=== PATIENT | male | born 1960 | race Caucasian/White ===

== ENCOUNTER 2021-12-09 10:00 | Observation (INO) | payer BC ==
[~2021-12-09] VITALS: Ht 175.3 cm; Wt 115.8 kg
[2021-12-09 10:39] LABS: BASOPHILS % (AUTO) 0.8 % (0.0-5.0); EOSINOPHILS % (AUTO) 4.6 % (0.0-8.0); HEMATOCRIT 39.5 % (42-54); LYMPHOCYTES % (AUTO) 22.4 % (21.0-51.0); MEAN CORPUSCULAR HEMOGLOBIN 29.3 pg (27.0-33.0); MEAN CORPUSCULAR HGB CONC 32.9 g/dL (32.0-36.0); MEAN CORPUSCULAR VOLUME 89.2 fL (79-99); NEUTROPHILS % (AUTO) 63.6 % (40.0-77.0); PLATELET COUNT (AUTO) 308 K/uL (130-400); RED BLOOD CELL COUNT(AUTO) 4.43 MIL/uL (4.50-6.20); RED CELL DISTRIBUTION WIDTH 12.7 % (11.0-15.5); WHITE BLOOD COUNT (AUTO) 9.3 K/uL (4.8-10.8)
[2021-12-09 10:46] LABS: POTASSIUM 4.1 mmol/L (3.5-5.1)
[2021-12-09 10:52] LABS: APPEARANCE,URINE CLEAR (CLEAR); BILIRUBIN,URINE NEGATIVE (NEGATIVE); COLOR,URINE YELLOW (YELLOW); GLUCOSE, URINE (UA) NEGATIVE (NEGATIVE); KETONES,URINE NEGATIVE (NEGATIVE); LEUKOCYTE ESTERASE ,URINE NEGATIVE (NEGATIVE); NITRATE,URINE NEGATIVE (NEGATIVE); OCCULT BLOOD,URINE NEGATIVE (NEGATIVE); PH,URINE 6.5 (5.0-8.0); PROTEIN,URINE NEGATIVE (NEGATIVE); UROBILINOGEN,URINE 0.2 mg/dL (0.2-1.0)
[2021-12-09 11:55] VITALS: BP 193/91
[2021-12-10] MEDS ORDERED: HYDR-4060 PO (12:19)
[2021-12-10] MEDS ORDERED: HYDR12.54 PO (12:19)
[2021-12-10] MEDS ORDERED: BACL10TA PO (12:19)
[2021-12-10] MEDS ORDERED: LOSA100T58 PO (12:19)
[2021-12-11] VITALS (25 sets, daily range): BP systolic 103–179; BP diastolic 53–78
[2021-12-11] MEDS ORDERED: LACTATED RINGERS 1000ML 1,000 ML IV ONE (08:08)
[2021-12-11] MEDS ORDERED: CLINDAMYCIN IVPB 900MG/50ML 50 ML IV ONE (08:08)
[2021-12-11] MEDS ORDERED: ASPI-1197 PO (08:47)
[2021-12-11] MEDS ORDERED: AMLO-258 PO (08:47)
[2021-12-11] MEDS ORDERED: NAPR-1023 PO (08:47)
[2021-12-11] MEDS ORDERED: MULT-1203 PO (08:47)
[2021-12-11] MEDS ORDERED: LIDOCAINE PF 100MG/5ML (2%) SYRINGE 5ML ONE (09:13)
[2021-12-11] MEDS ORDERED: SUCCINYLCHOLINE CHLORIDE 20 MG/ML 10 ML VIAL ONE (09:13)
[2021-12-11] MEDS ORDERED: FENTANYL CITRATE PF 50 MCG/1 ML 2ML VIAL ONE (09:14)
[2021-12-11] MEDS ORDERED: MIDAZOLAM HCL 1 MG/ML 2ML VIAL ONE (09:14)
[2021-12-11] MEDS ORDERED: PROPOFOL 10 MG/ML 20ML VIAL IV ONE (09:14)
[2021-12-11] MEDS ORDERED: ROCURONIUM 10MG/1ML SYR 10 MG/ML ML ONE ×2 (09:14→10:57)
[2021-12-11] MEDS ORDERED: ROPIVACAINE 0.5% 5MG/ML 30ML IJ ONE (09:20)
[2021-12-11] MEDS ORDERED: VANCOMYCIN 1G VIAL ONE (10:02)
[2021-12-11] MEDS ORDERED: MEPERIDINE-PF 25 MG/ML SYG ONE ×4 (12:12→14:54)
[2021-12-11] MEDS ORDERED: TEMAZEPAM 15 MG CAPSULE PO PRN (13:30)
[2021-12-11] MEDS ORDERED: ONDANSETRON 4MG INJ IVP PRN (13:30)
[2021-12-11] MEDS ORDERED: KCL 20 MEQ ERTAB PO PRN (13:30)
[2021-12-11] MEDS ORDERED: TRAMADOL HCL 50 MG TABLET PO PRN (13:30)
[2021-12-11] MEDS ORDERED: LIDOCAINE HCL-MPF 1% 2ML VIAL IV PRN (13:30)
[2021-12-11] MEDS ORDERED: CALCIUM CARB 500MG PO PRN (13:30)
[2021-12-11] MEDS ORDERED: VANCOMYCIN PROTOCOL PER PHARMACY IV SCH (13:30)
[2021-12-11] MEDS ORDERED: DiphenhydrAMINE HCL 50 MG/ML VIAL IVP PRN (13:30)
[2021-12-11] MEDS ORDERED: OXYCODONE HCL 5 MG TAB PO PRN (13:30)
[2021-12-11] MEDS ORDERED: POTASSIUM CHLORIDE 10% ELIXIR 20 MEQ/15 ML UDCUP PO PRN (13:30)
[2021-12-11] MEDS ORDERED: POTASSIUM CHLORIDE 20MEQ/100ML 100 ML IV PRN (13:30)
[2021-12-11] MEDS ORDERED: KETOROLAC 15MG/ML VIAL (15MG/ML) IV PRN (13:30)
[2021-12-11] MEDS: 0.9%NACL 1000ML 1,000 ML IV SCH ×2 (13:30→21:15)
[2021-12-11] MEDS ORDERED: FERROUS FUMARATE 324 MG TABLET PO PRN (13:30)
[2021-12-11] MEDS ORDERED: TRANEXAMIC ACID 1000MG/10ML ONE (14:22)
[2021-12-11] MEDS ORDERED: COMPOUND IV REFRIGERATED 1 EACH IVSOLN MISC PRN (15:00)
[2021-12-11] MEDS ORDERED: KETOROLAC 30MG VIAL (30MG/ML) ONE (15:26)
[2021-12-11] MEDS: ACETAMINOPHEN 500 MG TABLET PO SCH ×2 (16:59→18:05)
[2021-12-11] MEDS: CLINDAMYCIN IVPB 900MG/50ML 50 ML IV SCH (18:03)
[2021-12-11] MEDS: OXYCODONE HCL 5 MG TAB PO PRN (18:05)
[2021-12-11] MEDS: LOSARTAN 100 MG TABLET PO SCH (18:56)
[2021-12-11] MEDS: AMLODIPINE 5 MG TAB PO SCH (18:58)
[2021-12-11] MEDS: BACLOFEN 10 MG TABLET PO SCH (19:01)
[2021-12-11] MEDS: VANCOMYCIN 1.5GM/NS 250ML IV SCH ×2 (19:15)
[2021-12-11] MEDS ORDERED: NALOXONE HCL 0.4 MG/1 ML ML IVP PRN (19:30)
[2021-12-11] MEDS: FAMOTIDINE 20MG TAB PO SCH (20:07)
[2021-12-11] MEDS: PREGABALIN 25 MG CAP PO SCH (20:07)
[2021-12-11] MEDS: CELECOXIB 200 MG CAP PO SCH (20:07)
[2021-12-11] MEDS: HYDROMORPHONE PCA 10 MG/50 ML 50 ML IV PRN (21:15)
[2021-12-12] MEDS: CLINDAMYCIN IVPB 900MG/50ML 50 ML IV SCH (01:52)
[2021-12-12] MEDS: VANCOMYCIN 1.5GM/NS 250ML IV SCH ×2 (04:12)
[2021-12-12 04:54] VITALS: BP 127/50
[2021-12-12 05:39] LABS: HEMATOCRIT 28.6 % (42-54); MEAN CORPUSCULAR HEMOGLOBIN 30.2 pg (27.0-33.0); MEAN CORPUSCULAR HGB CONC 32.5 g/dL (32.0-36.0); MEAN CORPUSCULAR VOLUME 92.9 fL (79-99); RED BLOOD CELL COUNT(AUTO) 3.08 MIL/uL (4.50-6.20); RED CELL DISTRIBUTION WIDTH 12.9 % (11.0-15.5); WHITE BLOOD COUNT (AUTO) 10.3 K/uL (4.8-10.8)
[2021-12-12 06:00] LABS: POTASSIUM 3.5 mmol/L (3.5-5.1)
[2021-12-12] MEDS: ACETAMINOPHEN 500 MG TABLET PO SCH ×3 (06:18→19:43)
[2021-12-12 08:00] VITALS: BP 157/77
[2021-12-12] MEDS: OXYCODONE HCL 5 MG TAB PO PRN ×3 (08:29→19:43)
[2021-12-12] MEDS: LOSARTAN 100 MG TABLET PO SCH (08:36)
[2021-12-12] MEDS: AMLODIPINE 5 MG TAB PO SCH (08:36)
[2021-12-12] MEDS: CELECOXIB 200 MG CAP PO SCH ×2 (08:36→19:40)
[2021-12-12] MEDS: BACLOFEN 10 MG TABLET PO SCH (08:36)
[2021-12-12] MEDS: PREGABALIN 25 MG CAP PO SCH ×2 (08:36→19:40)
[2021-12-12] MEDS: TAMSULOSIN HCL 0.4 MG CAP.ER.24H PO SCH (08:36)
[2021-12-12] MEDS: APIXABAN 2.5 MG TABLET PO SCH ×2 (08:37→19:41)
[2021-12-12] MEDS: POLYETHYLENE GLYCOL 3350 17 GM POWD.PACK PO SCH (08:37)
[2021-12-12] MEDS: FAMOTIDINE 20MG TAB PO SCH ×2 (08:37→19:40)
[2021-12-12] MEDS: HYDROCHLOROTHIAZIDE 25 MG TABLET PO SCH (08:37)
[2021-12-12] MEDS: 0.9%NACL 1000ML 1,000 ML IV SCH (09:30)
[2021-12-12 12:00] VITALS: BP 150/59
[2021-12-12 16:00] VITALS: BP 106/66
[2021-12-12 19:48] VITALS: BP 133/56
[2021-12-12 23:20] VITALS: BP 148/70
[2021-12-13] MEDS: OXYCODONE HCL 5 MG TAB PO PRN (03:42)
[2021-12-13 03:43] VITALS: BP 140/62
[2021-12-13] MEDS: ACETAMINOPHEN 500 MG TABLET PO SCH ×2 (04:48→13:23)
[2021-12-13] MEDS: HYDROMORPHONE PCA 10 MG/50 ML 50 ML IV PRN (05:56)
[2021-12-13 08:00] VITALS: BP 96/48
[2021-12-13] MEDS: TAMSULOSIN HCL 0.4 MG CAP.ER.24H PO SCH (08:43)
[2021-12-13] MEDS: AMLODIPINE 5 MG TAB PO SCH (08:43)
[2021-12-13] MEDS: POLYETHYLENE GLYCOL 3350 17 GM POWD.PACK PO SCH (08:43)
[2021-12-13] MEDS: PREGABALIN 25 MG CAP PO SCH (08:44)
[2021-12-13] MEDS: FAMOTIDINE 20MG TAB PO SCH (08:44)
[2021-12-13] MEDS: APIXABAN 2.5 MG TABLET PO SCH (08:44)
[2021-12-13] MEDS: CELECOXIB 200 MG CAP PO SCH (08:45)
[2021-12-13] MEDS: BACLOFEN 10 MG TABLET PO SCH (08:45)
[2021-12-13] MEDS: HYDROCHLOROTHIAZIDE 25 MG TABLET PO SCH (08:45)
[2021-12-13] MEDS: LOSARTAN 100 MG TABLET PO SCH (08:45)
[2021-12-13 11:41] VITALS: BP 142/77
[2021-12-13] MEDS ORDERED: HYDR-4060 PO (13:43)
[2021-12-13] MEDS ORDERED: AEC81 PO (13:43)
[2021-12-14] MEDS ORDERED: BISACODYL 10 MG SUPP.RECT RC PRN (13:30)
== END 2021-12-13 15:01 | disposition home or self-care (01) ==
LOC: EDSTATUS 10:00 → DAHIP 12-11 07:47 → OBSVTOIN 12-11 07:47 → INTOOBSV 12-11 07:47 → EDSTATUS 12-11 10:00 → 3BH 12-11 16:46
PROVIDERS: ADMIT Orthopaedic Surgery; ATTEND Orthopaedic Surgery
DX: M17.32 Unilateral post-traumatic osteoarthritis, left knee (principal); Z20.822 Contact with and (suspected) exposure to COVID-19; I10 Essential (primary) hypertension; R26.89 Other abnormalities of gait and mobility; E66.9 Obesity, unspecified; Z79.899 Other long term (current) drug therapy; Z88.0 Allergy status to penicillin
CPT/HCPCS: 27447; 36415 ×2; 64447; 76942; 80048 ×2; 81003; 85025; 85027; 87088; 87635; 87641; 96365; 96366 ×3; 96367; 96368; 96375; 97039 ×5; 97116 ×4; 97161; 97530 ×4; A4215; A4221; A4222; A4223; A4649 ×5; A4663; A4930; A9272; C1776; G0378 ×28; J0330; J1170 ×2; J1885; J2001; J2175 ×4; J2250; J2405; J2704; J2795; J3010; J3370 ×2; J3490 ×4; J7050; J7120 ×2

== ENCOUNTER 2024-03-13 01:14 | Observation (INO) | payer BC ==
[~2024-03-13] VITALS: Ht 180.3 cm; Wt 109.3 kg
[~2024-03-13 01:14] MED LIST: AEC81 PO; AMLO-258 PO; BACL10TA PO; HYDR-4060 PO; HYDR12.54 PO; LOSA100T59 PO; MULT-1203 PO
[2024-03-13] MEDS: 0.9%NACL 1000ML 1,000 ML IV ONE ×2 (01:48→06:18)
[2024-03-13 01:54] LABS: BASOPHILS # (AUTO) 0.05 K/uL (0.00-0.20); BASOPHILS % (AUTO) 0.3 % (0.0-5.0); HEMATOCRIT 38.7 % (42-54); IMMATURE GRANULOCYTE ABSOLUTE 0.24 K/uL (0-1); LYMPHOCYTES # (AUTO) 0.8 K/uL (1.0-4.8); LYMPHOCYTES % (AUTO) 5.7 % (21.0-51.0); MEAN CORPUSCULAR HEMOGLOBIN 30.4 pg (27.0-33.0); MEAN CORPUSCULAR HGB CONC 33.9 g/dL (32.0-36.0); MEAN CORPUSCULAR VOLUME 89.8 fL (79-99); MONOCYTES # (AUTO) 0.4 K/uL (0.1-1.0); MONOCYTES % (AUTO) 2.8 % (3.0-13.0); NEUTROPHILS % (AUTO) 89.5 % (40.0-77.0); PLATELET COUNT (AUTO) 323 K/uL (130-400); RED BLOOD CELL COUNT(AUTO) 4.31 MIL/uL (4.50-6.20); RED CELL DISTRIBUTION WIDTH 13.2 % (11.0-15.5); WHITE BLOOD COUNT (AUTO) 14.5 K/uL (4.8-10.8)
[2024-03-13 02:03] LABS: CARBON DIOXIDE 25 mmol/L (21-32); CHLORIDE 100 mmol/L (101-111); CREATININE 1.9 mg/dL (0.5-1.3); GLOMERULAR FILTR. RATE CALC 39 mL/min (>90); GLUCOSE,RANDOM 158 mg/dL (70-105); POTASSIUM 5.2 mmol/L (3.5-5.1); SODIUM SERUM 137 mmol/L (136-145); UREA NITROGEN, BLOOD 18 mg/dL (7-18)
[2024-03-13 02:05] LABS: INR <= 0.93 (0.85-1.15); PROTHROMBIN TIME 10.5 SEC (9.6-11.6)
[2024-03-13 02:06] LABS: PARTIAL THROMBOPLASTIN TIME 25.1 SEC (26.3-35.5)
[2024-03-13 02:08] LABS: AMMONIA < 10 umol/L (11-32); CREATINE KINASE, TOTAL 69 U/L (21-232)
[2024-03-13] MEDS: ONDANSETRON 4MG INJ IVP ONE (03:23)
[2024-03-13] MEDS: MORPHINE 2 MG SYG IVP ONE (03:24)
[2024-03-13 06:02] LABS: APPEARANCE,URINE CLEAR (CLEAR); BILIRUBIN,URINE NEGATIVE (NEGATIVE); COLOR,URINE YELLOW (YELLOW); GLUCOSE, URINE (UA) NEGATIVE (NEGATIVE); KETONES,URINE NEGATIVE (NEGATIVE); LEUKOCYTE ESTERASE ,URINE NEGATIVE Leu/uL (NEGATIVE); NITRATE,URINE NEGATIVE (NEGATIVE); OCCULT BLOOD,URINE NEGATIVE (NEGATIVE); PH,URINE 5.5 (5.0-8.0); PROTEIN,URINE NEGATIVE (NEGATIVE); UROBILINOGEN,URINE 0.2 mg/dL (0.2-1.0)
[2024-03-13 06:03] LABS: ADD UA MICROSCOPIC NO
[2024-03-13 06:11] LABS: AMPHET/METH SCREEN,URINE NEGATIVE (NEGATIVE); BARBITURATE SCREEN, URINE NEGATIVE (NEGATIVE); BENZODIAZEPINES SCREEN,URINE NEGATIVE (NEGATIVE); CANNABINOID SCREEN,URINE NEGATIVE (NEGATIVE); COCAINE SCREEN,URINE NEGATIVE (NEGATIVE); OPIATE SCREEN,URINE NEGATIVE (NEGATIVE); PHENCYCLIDINE SCREEN,URINE NEGATIVE (NEGATIVE)
[2024-03-13] MEDS: 0.9%NACL 1000ML 1,000 ML IV SCH (07:50)
[2024-03-13] MEDS ORDERED: DIPHENHYDRAMINE HCL 25 MG CAPSULE PO PRN (08:00)
[2024-03-13] MEDS ORDERED: KCL 20 MEQ ERTAB PO PRN (08:00)
[2024-03-13] MEDS ORDERED: GUAIFENESIN-DM 200/20 MG 10 ML PO PRN (08:00)
[2024-03-13] MEDS ORDERED: ACETAMINOPHEN 325 MG TAB PO PRN ×2 (08:00)
[2024-03-13] MEDS ORDERED: MAGNESIUM 2GM PREMIX 50ML 50 ML IV PRN (08:00)
[2024-03-13] MEDS ORDERED: LACTULOSE 20 GM/30 ML UDCUP PO PRN (08:00)
[2024-03-13] MEDS ORDERED: POTASSIUM CHLORIDE 10% ELIXIR 20 MEQ/15 ML UDCUP PO PRN (08:00)
[2024-03-13] MEDS ORDERED: MAG/ALUM/SIMETH 30 ML UDCUP PO PRN (08:00)
[2024-03-13] MEDS ORDERED: HYDROCODONE/ACETAMINOPHEN 5/325 MG TAB PO PRN ×2 (08:00)
[2024-03-13] MEDS ORDERED: DiphenhydrAMINE HCL 50 MG/ML VIAL IV PRN (08:00)
[2024-03-13] MEDS ORDERED: FAMOTIDINE 20MG VIAL IV PRN (08:00)
[2024-03-13] MEDS ORDERED: NITROGLYCERIN 0.4 MG SL TAB SL PRN (08:00)
[2024-03-13] MEDS ORDERED: POTASSIUM CHLORIDE 20MEQ/100ML 100 ML IV PRN (08:00)
[2024-03-13] MEDS ORDERED: ONDANSETRON 4MG INJ IV PRN (08:00)
[2024-03-13] MEDS: LACTATED RINGERS 1000ML 1,000 ML IV SCH (08:00)
[2024-03-13] MEDS: LACTATED RINGERS 1000ML 1,000 ML IV ONE (08:08)
[2024-03-13 08:30] VITALS: BP 166/80; PULSE 98; RESP 20
[2024-03-13] MEDS ORDERED: HYDROMORPHONE 0.5 MG SYG (0.5MG/0.5ML) IV PRN (08:30)
[2024-03-13 08:34] LABS: CREATININE 1.6 mg/dL (0.5-1.3)
[2024-03-13 09:00] VITALS: O2SAT 98
[2024-03-13] MEDS: FAMOTIDINE 20MG TAB PO SCH (09:56)
[2024-03-13] MEDS: HEPARIN 5,000 UNIT VIAL SQ SCH (10:03)
[2024-03-13 11:33] VITALS: BP 168/73; PULSE 105; RESP 20
[2024-03-13 15:22] VITALS: BP 170/91; PULSE 88; RESP 18
[2024-03-13 20:00] VITALS: BP 134/76; PULSE 93; RESP 22
[2024-03-13 20:03] VITALS: O2SAT 99
[2024-03-14] VITALS: BP 153/78; PULSE 94; RESP 20
[2024-03-14 04:00] VITALS: BP 148/79; PULSE 82; RESP 20
[2024-03-14 05:16] LABS: BASOPHILS # (AUTO) 0.06 K/uL (0.00-0.20); BASOPHILS % (AUTO) 0.6 % (0.0-5.0); EOSINOPHILS # (AUTO) 0.37 K/uL (0.00-0.70); EOSINOPHILS % (AUTO) 3.9 % (0.0-8.0); HEMATOCRIT 35.6 % (42-54); LYMPHOCYTES # (AUTO) 1.8 K/uL (1.0-4.8); MEAN CORPUSCULAR HEMOGLOBIN 30.5 pg (27.0-33.0); MEAN CORPUSCULAR HGB CONC 32.9 g/dL (32.0-36.0); MONOCYTES # (AUTO) 0.7 K/uL (0.1-1.0); MONOCYTES % (AUTO) 7.3 % (3.0-13.0); NEUTROPHILS # (AUTO) 6.5 K/uL (1.8-7.7); NEUTROPHILS % (AUTO) 68.2 % (40.0-77.0); PLATELET COUNT (AUTO) 281 K/uL (130-400); RED BLOOD CELL COUNT(AUTO) 3.83 MIL/uL (4.50-6.20); RED CELL DISTRIBUTION WIDTH 13.5 % (11.0-15.5); WHITE BLOOD COUNT (AUTO) 9.5 K/uL (4.8-10.8)
[2024-03-14 05:42] LABS: % IRON SATURATION 30.1 % (30-44)
[2024-03-14 05:43] LABS: ALBUMIN 3.2 g/dL (3.5-5.0); CREATININE 1.1 mg/dL (0.5-1.3); MAGNESIUM 1.8 mg/dL (1.80-2.40); PHOSPHORUS 3.3 mg/dL (2.5-4.9); POTASSIUM 3.9 mmol/L (3.5-5.1); THYROID STIMULATING HORMONE 2.19 uIU/mL (0.36-3.74); TOTAL PROTEIN, SERUM 5.9 g/dL (6.0-8.3)
[2024-03-14 06:10] LABS: HEMOGLOBIN A1C 5.7 % (4.0-6.0)
[2024-03-14 06:24] LABS: BILIRUBIN,TOTAL 0.3 mg/dL (0.2-1.0)
[2024-03-14 08:00] VITALS: BP 146/79; PULSE 81; RESP 16; O2SAT 100
[2024-03-14 12:00] VITALS: BP 158/73; PULSE 87; RESP 16
== END 2024-03-14 13:45 | disposition home or self-care (01) ==
LOC: EDH 01:14 → EDHIP 07:34 → 4BH 08:30 → 4CH 08:31
PROVIDERS: ADMIT Internal Medicine; ATTEND Internal Medicine
DX: G93.41 Metabolic encephalopathy (principal); E86.0 Dehydration; T67.5XXA Heat exhaustion, unspecified, initial encounter; N17.9 Acute kidney failure, unspecified; I10 Essential (primary) hypertension; G51.0 Bell's palsy; E87.20 Acidosis, unspecified; D72.829 Elevated white blood cell count, unspecified; Z96.659 Presence of unspecified artificial knee joint; Z79.899 Other long term (current) drug therapy; Z98.890 Other specified postprocedural states; Z88.0 Allergy status to penicillin; X30.XXXA Exposure to excessive natural heat, initial encounter; Y93.89 Activity, other specified; Y92.89 Other specified places as the place of occurrence of the external cause; Y99.8 Other external cause status
CPT/HCPCS: 96374; 96372 ×2; 96361 ×5; 96375; 99285; 82550; 84484; 80048 ×2; 80305; 82140; 85025; 85610; 85730; 83605 ×3; 81003; 36415 ×2; 71045; 70450; 93005; 84145; 80050; 83036; 83540; 83550; 83735; 84100; G0378 ×30; J7120; J2270; J7030; J2405; J1644 ×3; 80053; 84443

== ENCOUNTER 2024-06-12 08:49 | Emergency (ER) | payer BC ==
[~2024-06-12] VITALS: Ht 175.3 cm; Wt 136.1 kg
[~2024-06-12 08:49] MED LIST changes: -HYDR12.54 PO
[2024-06-12] MEDS: 0.9%NACL 1000ML 1,000 ML IV ONE ×2 (09:05→11:23)
[2024-06-12 09:38] LABS: BASOPHILS # (AUTO) 0.02 K/uL (0.00-0.20); BASOPHILS % (AUTO) 0.2 % (0.0-5.0); EOSINOPHILS # (AUTO) 0.02 K/uL (0.00-0.70); EOSINOPHILS % (AUTO) 0.2 % (0.0-8.0); HEMATOCRIT 36.8 % (42-54); IMMATURE GRANULOCYTE ABSOLUTE 0.07 K/uL (0-1); LYMPHOCYTES # (AUTO) 1.3 K/uL (1.0-4.8); LYMPHOCYTES % (AUTO) 10.4 % (21.0-51.0); MEAN CORPUSCULAR HGB CONC 33.2 g/dL (32.0-36.0); MEAN CORPUSCULAR VOLUME 90.6 fL (79-99); MONOCYTES # (AUTO) 0.9 K/uL (0.1-1.0); MONOCYTES % (AUTO) 6.9 % (3.0-13.0); NEUTROPHILS # (AUTO) 10.4 K/uL (1.8-7.7); NEUTROPHILS % (AUTO) 81.8 % (40.0-77.0); PLATELET COUNT (AUTO) 303 K/uL (130-400); RED BLOOD CELL COUNT(AUTO) 4.06 MIL/uL (4.50-6.20); RED CELL DISTRIBUTION WIDTH 12.5 % (11.0-15.5); WHITE BLOOD COUNT (AUTO) 12.7 K/uL (4.8-10.8)
[2024-06-12 09:48] LABS: CREATININE 1.4 mg/dL (0.5-1.3); POTASSIUM 4.1 mmol/L (3.5-5.1)
[2024-06-12 09:49] LABS: INR 0.99 (0.85-1.15); PROTHROMBIN TIME 10.7 SEC (9.6-11.6)
[2024-06-12 09:51] LABS: PARTIAL THROMBOPLASTIN TIME 24.4 SEC (26.3-35.5)
[2024-06-12 09:52] LABS: ALBUMIN 3.7 g/dL (3.5-5.0); BILIRUBIN,DIRECT 0.1 mg/dL (0.0-0.3); BILIRUBIN,TOTAL 0.3 mg/dL (0.2-1.0); TOTAL PROTEIN, SERUM 6.5 g/dL (6.0-8.3)
[2024-06-12 14:06] VITALS: BP 154/79; PULSE 95; RESP 20; O2SAT 99
== END 2024-06-12 14:07 | disposition home or self-care (01) ==
LOC: EDH 08:49
DX: E86.0 Dehydration (principal); R25.2 Cramp and spasm; R53.1 Weakness; R42 Dizziness and giddiness; R41.82 Altered mental status, unspecified; I10 Essential (primary) hypertension; Z88.0 Allergy status to penicillin; Z79.899 Other long term (current) drug therapy; Z79.82 Long term (current) use of aspirin
CPT/HCPCS: 99284; 96360; 70450; 96361; 82550; 80076; 84484; 80048; 82140; 85025; 85610; 85730; 83605; 36415; 93005; J7030 ×2

== ENCOUNTER 2024-09-25 09:51 | Emergency (ER) | payer BC ==
[~2024-09-25] VITALS: Ht 175.3 cm; Wt 109.8 kg
[~2024-09-25 09:51] MED LIST changes: +ROSU5TAB51 PO; +TAMS-1 PO
--- NOTE | 2024-09-25 11:59 | ERN ---
General Chief Complaint: Other Problems Stated Complaint: WANTS F/C REMOVED Time Seen by MD: 10:00 Time Seen by Midlevel: 10:30 Source: patient History of Present Illness Initial Comments 64-year-old male presents to the ED requesting schilling catheter removal. Patient had Schilling cath placed due to urine retention on 09/10/24 during admission. Alan willis was instructed to follow up outpatient with urologist and prescribed Flomax. Patient is currently waiting appointment with urologist. Patient states he was instructed to come to the ED for flow test and Schilling catheterization removal. Patient is adamant about having the Schilling cath removed. Denies any symptoms. PMHx BPH, HTN Allergies: Coded Allergies: Penicillins (Unverified Allergy, Unknown, 12/10/21) zolpidem (Unverified Allergy, Unknown, 09/25/24) Home Meds Active Scripts Tamsulosin HCl (Flomax) 0.4 Mg Cap.er.24h, 0.4 MG PO DAILY for 30 Days, #30 CAPSULE.DR Prov:KOURTNEY LOCK 09/25/24 Cephalexin (Cephalexin) 500 Mg Tablet, 500 MG PO BID for 7 Days, #14 TAB Prov:KOURTNEY LOCK 09/25/24 Tamsulosin HCl (Flomax) 0.4 Mg Cap.er.24h, 0.4 MG PO DAILY, #30 CAPSULE.DR 0 Refills Prov:HEATHER GRADY MD 09/12/24 Hydrocodone/Acetaminophen (Hydrocodon-Acetaminophen 5-325) 1 Each Tablet, 1-2 EACH PO Q6HPRN PRN for ACUTE POST-OP PAIN (G89.18), #56 TAB 0 Refills Prov:DONAL LAMB MD 12/13/21 Aspirin (ASPIRIN 81 MG ECTAB) 81 Mg Ectab, 81 MG PO BID for DVT PROPHYLAXIS, #40 TAB.EC Prov:DONAL LAMB MD 12/13/21 Reported Medications Rosuvastatin Calcium (Rosuvastatin Calcium) 5 Mg Tablet, 1 TAB PO DAILY for high cholesterol for 30 Days, #30 TAB 0 Refills 09/08/24 Multivitamin (Multi Vitamin Daily) 1 Each Tablet, 1 EACH PO DAILY, TAB 12/11/21 Amlodipine Besylate (Amlodipine Besylate) 10 Mg Tablet, 10 MG PO DAILY for 30 Da ys, #30 TAB 0 Refills 12/11/21 Baclofen (Baclofen) 10 Mg Tablet, 10 MG PO TID, TAB 12/10/21 Losartan Potassium (Losartan Potassium) 100 Mg Tablet, 100 MG PO DAILY, TAB 12/10/21 Past Medical History Past Medical History: High Cholesterol, Hypertension, Prostatitis Past Surgical History: Unknown Surgical History Other: BILATERAL KNEE REPLACEMENTS ROS Dictation Constitutional: Negative for fever,chills, and weight loss Eyes: Negative for injury, pain,redness, and discharge ENT: Negative for injury,pain or swelling Cardiovascular: Negative for chest pain, palpitations, and edema Respiratory: Negative for shortness of breath, cough, and wheezing, Abdomen/GI: Negative for abdominal pain, nausea, vomiting, diarrhea, and constipation Back: Negative for injury and pain : Negative for injury, bleeding and discharge MS/Extremity: Negative for injury and deformity Skin: Negative for rash, and discoloration Neuro: Negative for headache, weakness, numbness, tingling, and seizure Psych: Negative for suicide ideation, homicidal ideation, and hallucinations Physical Exam Physical Exam Dictation General: awake, alert, NAD Head/Face: Normocephalic, atraumatic Neck: Normal range of motion Cardiovascular: RRR Respiratory: CTAB, no respiratory distress Abdomen: Soft, non-tender, non-distended, no guarding or rebound. : Schilling catheter in place Skin: Warm, dry, normal turgor, no rash MS/Extremity: Pulses equal, no cyanosis, neurovascular intact, FROM Neuro: COAx4, GCS 15, no neurological deficits, normal gait, Psych: Normal behavior, mood, and affect normal Results Laboratory and Microbiology Lab and Micro Result Laboratory Tests Test 09/25/24 12:09 Urine Color YELLOW (YELLOW) Urine Appearance CLEAR (CLEAR) Urine pH 6.5 (5.0-8.0) Urine Specific Hardy 1.011 (1.001-1.031) Urine Protein 30 mg/dL (NEGATIVE) H Urine Glucose (UA) NEGATIVE mg/dL (NEGATIVE) Urine Ketones NEGATIVE mg/dL (NEGATIVE) Urine Occult Blood +- (TRACE) (NEGATIVE) H Urine Nitrate 2+ (NEGATIVE) H Urine Bilirubin NEGATIVE mg/dL (NEGATIVE) Urine Urobilinogen 0.2 mg/dL (0.2-1.0) Urine Leukocyte Esterase 250 Lyubov/uL (NEGATIVE) H Urine RBC 26-50 /HPF (0-1) H Urine WBC 11-25 /HPF (0-1) H Urine Bacteria FEW /HPF (None Seen) Labs Reviewed?: Yes MDM MDM: Differential diagnosis: Urine retention, UTI, Schilling cath problem, BPH Rationale:64-year-old male presents to the ED requesting a Schilling catheter removal. Patient had Schilling cath placed due to urine retention on 09/07/24 during admission. Patient was instructed to follow up outpatient with urologist and prescribed Flomax. Patient states he was instructed to come to the ED for flow test and Schilling catheterization removal. Patient is adamant about having the Schilling cath removed. Denies any symptoms. PMHx BPH, HTN Urinary obtained in the ED indicates a urinary tract infection. Patient was administered Rocephin and IV fluids. The patient was able to urinate 800 cc without the Schilling cath. Bladder scan was then performed which indicated 200 cc in the bladder, consistent with the 1,000 mL IV fluids he received. Patient was educated on the findings, diagnosis, and when to return to the ED. Patient verbalized understanding, antibiotics and Flomax were prescribed for outpatient treatment. Advised to follow up with PCP and urologist. Return to the ED if any worsening symptoms. Patient is stable for discharge. There are no social concerns with this patient. I independently interpreted the test that were performed, results were reviewed by me and considered findings on radiology if ordered. Medical management and examination interpretation discussions were had by me wi th other qualified healthcare professionals as indicated for the patient's care. ED Course Orders Procedure Category Date Status Time Urinalysis LAB 09/25/24 Complete W/Microscopic 11:05 0.9%Nacl 1000ml (Ns PHA 09/25/24 Complete 1000ml) 11:30 Culture Urine CLAIRE 09/25/24 Complete 12:26 Cephalexin 500 Mg PHA 09/25/24 Complete Capsule (Keflex 500 Mg 14:00 Vital Signs Date Time Temp Pulse Resp B/P (MAP) Pulse Ox O2 Delivery O2 Flow Rate FiO2 09/25/24 16:16 98.8 77 18 138/80 98 Room Air* 0 21 09/25/24 11:31 98.8 82 18 152/85 98 Room Air* 0 09/25/24 09:53 98.8 82 18 152/85 98 Room Air 0 DX & DISP Disposition: Discharge Departure Impression: Primary Impression: Urinary tract infection Additional Impression: Encounter for Schilling catheter removal Condition: Stable Scripts Tamsulosin HCl (Flomax) 0.4 Mg Cap.er.24h 0.4 MG PO DAILY for 30 Days, #30 CAPSULE.DR Prov: KOURTNEY LOCK 09/25/24 Cephalexin (Cephalexin) 500 Mg Tablet 500 MG PO BID for 7 Days, #14 TAB Prov: KOURTNEY LOCK 09/25/24 Additional Instructions: Discharge home. Rest. Follow up with primary care DrMoo in 24 hours. Return to the ER for any acute changes or worsening symptoms. If any medications were prescribed take as directed. Okay to continue home medications unless otherwise discussed during your visit in the emergency room today. Patient was also advised to follow-up with primary care physician in 1 to 2 days for continued monitoring. Referrals: Krysten SELBY MD (PCP) I participated in the following activities of this patient's care: For this patient encounter, I reviewed the PA or DAY CARE HOME PROVIDER documentation, treatment plan, and medical decision making. I did not have [id number] time with this patient. I will sign as the reviewing DrMoo And agree with the treatment plan and disposition. KOURTNEY LOCK Sep 25, 2024 11:59
--- NOTE | 2024-09-25 12:06 | NUR ---
SANCHEZ REMOVED, PT TOLERATED WELL
[2024-09-25] MEDS: 0.9%NACL 1000ML 1,000 ML IV ONE (12:23)
[2024-09-25 12:24] LABS: APPEARANCE,URINE CLEAR (CLEAR); BACTERIA,URINE FEW /HPF (None Seen); BILIRUBIN,URINE NEGATIVE (NEGATIVE); COLOR,URINE YELLOW (YELLOW); GLUCOSE, URINE (UA) NEGATIVE (NEGATIVE); KETONES,URINE NEGATIVE (NEGATIVE); LEUKOCYTE ESTERASE ,URINE 250 Leu/uL (NEGATIVE); MUCUS,URINE RARE LPF (None Seen); NITRATE,URINE 2+ (NEGATIVE); PH,URINE 6.5 (5.0-8.0); PROTEIN,URINE 30 mg/dL (NEGATIVE); RBC,URINE 26-50 /HPF (0-1); UROBILINOGEN,URINE 0.2 mg/dL (0.2-1.0)
--- NOTE | 2024-09-25 14:23 | NUR ---
URINE OUTPUT IS 400 ML
[2024-09-25] MEDS: cePHALexin 500 MG CAPSULE PO ONE (14:29)
--- NOTE | 2024-09-25 15:30 | NUR ---
400ML URINE OUTPUT 1530
--- NOTE | 2024-09-25 15:36 | NUR ---
BLADDER SCAN SHOWS 237ML RESIDUAL AFTER URINATION
[2024-09-25] MEDS ORDERED: CEPH500T PO (16:00)
[2024-09-25] MEDS ORDERED: TAMS-1 PO (16:00)
[2024-09-25 16:16] VITALS: BP 138/80; PULSE 77; RESP 18; TEMP 98.8; O2SAT 98
== END 2024-09-25 16:17 | disposition home or self-care (01) ==
LOC: EDH 09:51
DX: N39.0 Urinary tract infection, site not specified (principal); E78.00 Pure hypercholesterolemia, unspecified; I10 Essential (primary) hypertension; Z79.899 Other long term (current) drug therapy; Z88.0 Allergy status to penicillin; Z96.653 Presence of artificial knee joint, bilateral
CPT/HCPCS: 99283; 87086 ×2; 87186; 81001; J7030